=== PATIENT | female | born 1975 | race Caucasian/White ===

== ENCOUNTER 2017-08-05 06:37 | Outpatient (CLI) | payer OTHER | END 2017-08-05 07:12 | disposition home or self-care (01) | LOC: LAB 06:37 | DX: Z12.11 Encounter for screening for malignant neoplasm of colon (principal); D64.9 Anemia, unspecified; E03.9 Hypothyroidism, unspecified; N95.1 Menopausal and female climacteric states; I10 Essential (primary) hypertension; C51.9 Malignant neoplasm of vulva, unspecified; N39.0 Urinary tract infection, site not specified; E55.9 Vitamin D deficiency, unspecified; A64 Unspecified sexually transmitted disease; R19.00 Intra-abdominal and pelvic swelling, mass and lump, unspecified site ==

== ENCOUNTER 2017-11-26 06:28 | Emergency (ER) | payer OTHER ==
[~2017-11-26] VITALS: Ht 167.6 cm; Wt 72.6 kg
[2017-11-26] MEDS ORDERED: KETO10TA2 PO (08:21)
[2017-11-26] MEDS ORDERED: NORFLEX100MG PO (08:21)
== END 2017-11-26 08:20 | disposition home or self-care (01) ==
LOC: ER 06:28
DX: M54.89 Other dorsalgia (principal)

== ENCOUNTER 2017-11-29 11:52 | Outpatient (CLI) | payer OTHER ==
[~2017-11-29 11:52] MED LIST: KETO10TA2 PO; NORFLEX100MG PO
== END 2017-11-29 11:58 | disposition home or self-care (01) ==
LOC: MAMO-SONO 11:52
DX: Z12.31 Encounter for screening mammogram for malignant neoplasm of breast (principal); N60.11 Diffuse cystic mastopathy of right breast; N60.12 Diffuse cystic mastopathy of left breast; E04.1 Nontoxic single thyroid nodule

== ENCOUNTER 2018-05-15 07:58 | Outpatient (CLI) | payer OTHER | END 2018-05-15 08:01 | disposition home or self-care (01) | LOC: SONOGRAMA 07:58 | DX: E04.2 Nontoxic multinodular goiter (principal) ==

== ENCOUNTER 2020-01-21 09:53 | Outpatient (CLI) | payer OTHER | END 2020-01-21 09:59 | disposition home or self-care (01) | LOC: SONOGRAMA 09:53 | PROVIDERS: ATTEND Pathology Anatomic Pathology & Clinical Pathology | DX: E06.3 Autoimmune thyroiditis (principal) ==